=== PATIENT | male | born 1955 | race Caucasian/White ===

== ENCOUNTER 2017-01-21 10:28 | Outpatient (CLI) | payer OTHER | END 2017-01-21 10:29 | disposition home or self-care (01) | LOC: SC 10:28 | PROVIDERS: ATTEND Internal Medicine Pulmonary Disease | DX: G47.30 Sleep apnea, unspecified (principal); G47.8 Other sleep disorders; R06.83 Snoring; G47.10 Hypersomnia, unspecified | CPT/HCPCS: 99203; 99212 ==

== ENCOUNTER 2017-03-18 09:18 | Outpatient (CLI) | payer OTHER | END 2017-03-18 09:19 | disposition home or self-care (01) | LOC: SC 09:18 | PROVIDERS: ATTEND Internal Medicine Pulmonary Disease | DX: G47.33 Obstructive sleep apnea (adult) (pediatric) (principal) | CPT/HCPCS: 99212; 99213 ==